=== PATIENT | female | born 1950 | race Caucasian/White ===

== ENCOUNTER → 2019-09-01 11:54 | Outpatient (CLI) | payer MEDICARE, OTHER, SELFPAY ==
[2019-09-04 09:36] LABS: COVID19 Sendout Not Detected (Not Detected)
== END ==
PROVIDERS: PCP Family Medicine; Referring Provider Family Medicine; Visit Provider Family Medicine
DX: Z11.59 Encounter for screening for other viral diseases (principal)
CPT/HCPCS: 87635